=== PATIENT | female | born 1985 | race Hispanic/Latino ===

== ENCOUNTER 2020-10-14 06:50 | Inpatient (IN) | payer OTHER ==
[~2020-10-14] VITALS: Ht 167.6 cm; Wt 106.1 kg
[2020-10-14] VITALS (9 sets, daily range): BP systolic 102–138; BP diastolic 44–87
[2020-10-14] MEDS ORDERED: FAMOTIDINE 20MG VIAL IV ONE (08:00)
[2020-10-14] MEDS ORDERED: SOLU-MEDROL 125MG VIAL IVP ONE (08:00)
[2020-10-14 08:02] LABS: BASOPHILS % (AUTO) 0.3 % (0.0-5.0); EOSINOPHILS % (AUTO) 0.3 % (0.0-8.0); HEMATOCRIT 41.3 % (36-48); LYMPHOCYTES % (AUTO) 7.2 % (21.0-51.0); MEAN CORPUSCULAR HEMOGLOBIN 25.7 pg (27.0-33.0); MEAN CORPUSCULAR HGB CONC 32.2 g/dL (32.0-36.0); MEAN CORPUSCULAR VOLUME 79.9 fL (79-99); MONOCYTES % (AUTO) 2.5 % (3.0-13.0); NEUTROPHILS % (AUTO) 87.2 % (40.0-77.0); PLATELET COUNT (AUTO) 222 K/uL (130-400); RED BLOOD CELL COUNT(AUTO) 5.17 MIL/uL (4.00-5.50); RED CELL DISTRIBUTION WIDTH 15.9 % (11.0-15.5); WHITE BLOOD COUNT (AUTO) 15.5 K/uL (4.8-10.8)
[2020-10-14 08:17] LABS: POTASSIUM 3.1 mmol/L (3.5-5.1)
[2020-10-14 08:22] LABS: ALBUMIN 1.5 g/dL (3.5-5.0); BILIRUBIN,DIRECT 0.2 mg/dL (0.0-0.3); BILIRUBIN,TOTAL 0.4 mg/dL (0.2-1.0); TOTAL PROTEIN, SERUM 7.2 g/dL (6.0-8.3)
[2020-10-14] MEDS: ALBUTEROL INHALER 90MCG/INH IH SCH ×3 (08:26→20:16)
[2020-10-14 08:38] LABS: CRP QUANTITATIVE 225.5 mg/L (0.00-9.0)
[2020-10-14] MEDS ORDERED: LACTATED RINGERS 1000ML 1,000 ML IV ONE (09:00)
[2020-10-14] MEDS ORDERED: CEFTRIAXONE 1G VIAL IVP ONE (09:00)
[2020-10-14 09:07] LABS: ERYTHROCYTE SEDIMENTATION RATE 82 MM/HR (0-20)
[2020-10-14] MEDS ORDERED: ENOXAPARIN SODIUM 80 MG/0.8 ML SQ ONE (09:30)
[2020-10-14] MEDS ORDERED: ACETAMINOPHEN 325 MG TAB ONE (10:06)
[2020-10-14] MEDS ORDERED: DEXAMETHASONE SOD PHOSPHATE 4 MG/ML 1ML VIAL IVP SCH (11:00)
[2020-10-14] MEDS: CEFTRIAXONE 1G VIAL IVP SCH ×2 (11:00→23:53)
[2020-10-14] MEDS ORDERED: GLUCAGON 1MG KIT 1 MG ML IM PRN (11:00)
[2020-10-14] MEDS ORDERED: DEXTROSE 50%-WATER 50 ML DISP.SYRIN IV PRN (11:00)
[2020-10-14] MEDS ORDERED: DiphenhydrAMINE HCL 50 MG/ML VIAL IV PRN (11:00)
[2020-10-14 11:14] LABS: HEMOGLOBIN A1C 5.7 % (4.0-6.0)
[2020-10-14] MEDS: INSULIN HUMULIN R 100 UNIT/ML 3ML SQ SCH ×3 (11:30→21:00)
[2020-10-14] MEDS ORDERED: AZITHROMYCIN 500MG VIAL IVPB SCH (12:30)
[2020-10-14] MEDS ORDERED: 0.9% NACL 250ML IVPB SCH (12:30)
[2020-10-14] MEDS: AZITHROMYCIN 500MG+NS 250ML 250 ML IV SCH (12:50)
[2020-10-14] MEDS ORDERED: PHARMACY COMMUNICATION MISC SCH (15:00)
[2020-10-14] MEDS ORDERED: COMPOUND IV REFRIGERATED 1 EACH IVSOLN MISC PRN (15:30)
[2020-10-14] MEDS ORDERED: REMDESIVIR (EUA) 520 200 MG in 0.9% NACL 250ML 250 ML IV SCH (16:00)
[2020-10-14] MEDS ORDERED: METHYLERGONOVINE MALEATE 0.2 MG/1 ML ML IM ONE (16:03)
[2020-10-14] MEDS: ACETAMINOPHEN 325 MG TAB PO PRN (20:06)
[2020-10-14] MEDS ORDERED: FAMOTIDINE 20MG TAB PO SCH (21:00)
[2020-10-14] MEDS: FAMOTIDINE 20MG TAB PO SCH (21:02)
[2020-10-14] MEDS: DEXAMETHASONE SOD PHOSPHATE 4 MG/ML 1ML VIAL IVP SCH (23:52)
[2020-10-15] VITALS (21 sets, daily range): BP systolic 102–142; BP diastolic 44–85
[2020-10-15] MEDS: ALBUTEROL INHALER 90MCG/INH IH SCH ×4 (02:00→20:28)
[2020-10-15 03:48] LABS: ABG BASE EXCESS 0.3 mmol/L (-2.0-3.0); ABG HCO3 23.3 mmol/L (21.0-28.0); ABG OXYGEN SATURATION 96.3 % (95.0-99.0); ABG PCO2 33 mmHg (32-45)
[2020-10-15 04:22] LABS: RED BLOOD CELL COUNT(AUTO) 4.61 MIL/uL (4.00-5.50); WHITE BLOOD COUNT (AUTO) 11.6 K/uL (4.8-10.8)
[2020-10-15 04:23] LABS: BASOPHILS % (AUTO) 0.3 % (0.0-5.0); HEMATOCRIT 37.3 % (36-48); LYMPHOCYTES % (AUTO) 6.1 % (21.0-51.0); MEAN CORPUSCULAR HGB CONC 32.2 g/dL (32.0-36.0); MEAN CORPUSCULAR VOLUME 80.9 fL (79-99); MONOCYTES % (AUTO) 2.9 % (3.0-13.0); NEUTROPHILS % (AUTO) 88.8 % (40.0-77.0); NUCLEATED RED BLOOD CELLS 0.5 % (0.0-0.19); PLATELET COUNT (AUTO) 186 K/uL (130-400); RED CELL DISTRIBUTION WIDTH 16.1 % (11.0-15.5)
[2020-10-15 05:16] LABS: ALBUMIN 1.3 g/dL (3.5-5.0); BILIRUBIN,TOTAL 0.3 mg/dL (0.2-1.0); CREATININE 0.7 mg/dL (0.5-1.5); POTASSIUM 3.7 mmol/L (3.5-5.1); TOTAL PROTEIN, SERUM 5.4 g/dL (6.0-8.3)
[2020-10-15] MEDS: ACETAMINOPHEN 325 MG TAB PO PRN (05:33)
[2020-10-15 05:34] LABS: CRP QUANTITATIVE 204.7 mg/L (0.00-9.0)
[2020-10-15] MEDS: POTASSIUM CHLORIDE 10% ELIXIR 20 MEQ/15 ML UDCUP PO PRN (05:37)
[2020-10-15] MEDS: REMDESIVIR LABS MISC SCH (06:00)
[2020-10-15] MEDS: PHARMACY COMMUNICATION MISC SCH ×5 (07:00→23:00)
[2020-10-15] MEDS: INSULIN HUMULIN R 100 UNIT/ML 3ML SQ SCH ×4 (07:30→20:32)
[2020-10-15] MEDS: FAMOTIDINE 20MG TAB PO SCH ×2 (09:00→20:29)
[2020-10-15] MEDS: ENOXAPARIN SODIUM 40 MG/0.4 ML SYRINGE SQ SCH (09:00)
[2020-10-15] MEDS: AZITHROMYCIN 500MG+NS 250ML 250 ML IV SCH (12:43)
[2020-10-15] MEDS: CEFTRIAXONE 1G VIAL IVP SCH ×2 (12:43→23:00)
[2020-10-15] MEDS: DEXAMETHASONE SOD PHOSPHATE 4 MG/ML 1ML VIAL IVP SCH ×2 (12:43→23:00)
[2020-10-15] MEDS: REMDESIVIR (EUA) 520 100 MG in 0.9% NACL 250ML 250 ML IV SCH (16:30)
[2020-10-15 18:18] LABS: APPEARANCE,URINE Clear (CLEAR); BILIRUBIN,URINE Negative (NEGATIVE); COLOR,URINE Dark Yellow (YELLOW); GLUCOSE, URINE (UA) Negative (NEGATIVE); KETONES,URINE 40 mg/dL (NEGATIVE); LEUKOCYTE ESTERASE ,URINE Negative (NEGATIVE); NITRATE,URINE Negative (NEGATIVE); OCCULT BLOOD,URINE Negative (NEGATIVE); PH,URINE 6.5 (5.0-8.0); PROTEIN,URINE POS 1+ mg/dL (NEGATIVE)
[2020-10-15] MEDS: BARICITINIB (EUA) 2 MG TABLET PO SCH (18:27)
[2020-10-15] MEDS: BUSPIRONE HCL 5 MG TABLET PO SCH (18:27)
[2020-10-15 18:30] LABS: BACTERIA,URINE Few /HPF (None Seen); RBC,URINE 0-1 /HPF (0-1); WBC,URINE 0-1 /HPF (0-1); YEAST,URINE BUDDING Rare /HPF (None Seen)
[2020-10-15 18:31] LABS: MUCUS,URINE Rare LPF (None Seen); SQUAMOUS EPITHELIAL CELL,UR Few /HPF (0-2)
[2020-10-16] VITALS (20 sets, daily range): BP systolic 97–134; BP diastolic 44–96
[2020-10-16] MEDS: BUSPIRONE HCL 5 MG TABLET PO SCH ×3 (02:26→16:50)
[2020-10-16] MEDS: ALBUTEROL INHALER 90MCG/INH IH SCH ×4 (02:26→20:00)
[2020-10-16] MEDS: PHARMACY COMMUNICATION MISC SCH ×6 (03:00→23:00)
[2020-10-16 04:37] LABS: BASOPHILS % (AUTO) 0.1 % (0.0-5.0); HEMATOCRIT 33.1 % (36-48); LYMPHOCYTES % (AUTO) 7.9 % (21.0-51.0); MEAN CORPUSCULAR HEMOGLOBIN 25.7 pg (27.0-33.0); MEAN CORPUSCULAR HGB CONC 31.7 g/dL (32.0-36.0); MEAN CORPUSCULAR VOLUME 80.9 fL (79-99); MONOCYTES % (AUTO) 3.1 % (3.0-13.0); NEUTROPHILS % (AUTO) 87.4 % (40.0-77.0); NUCLEATED RED BLOOD CELLS 0.2 % (0.0-0.19); PLATELET COUNT (AUTO) 191 K/uL (130-400); RED BLOOD CELL COUNT(AUTO) 4.09 MIL/uL (4.00-5.50); RED CELL DISTRIBUTION WIDTH 16.1 % (11.0-15.5); WHITE BLOOD COUNT (AUTO) 9.2 K/uL (4.8-10.8)
[2020-10-16 04:52] LABS: ALBUMIN 1.3 g/dL (3.5-5.0); BILIRUBIN,TOTAL 0.2 mg/dL (0.2-1.0); CREATININE 0.6 mg/dL (0.5-1.5); CRP QUANTITATIVE 45.5 mg/L (0.00-9.0); POTASSIUM 3.5 mmol/L (3.5-5.1); TOTAL PROTEIN, SERUM 5.7 g/dL (6.0-8.3)
[2020-10-16] MEDS: REMDESIVIR LABS MISC SCH (05:10)
[2020-10-16] MEDS: INSULIN HUMULIN R 100 UNIT/ML 3ML SQ SCH ×4 (05:11→19:49)
[2020-10-16] MEDS: KCL 20 MEQ ERTAB PO PRN ×2 (05:57→12:41)
[2020-10-16] MEDS: FAMOTIDINE 20MG TAB PO SCH ×2 (08:53→21:03)
[2020-10-16] MEDS: ENOXAPARIN SODIUM 40 MG/0.4 ML SYRINGE SQ SCH (08:54)
[2020-10-16] MEDS: BARICITINIB (EUA) 2 MG TABLET PO SCH (09:16)
[2020-10-16] MEDS: DEXAMETHASONE SOD PHOSPHATE 4 MG/ML 1ML VIAL IVP SCH ×3 (10:49→23:43)
[2020-10-16] MEDS: CEFTRIAXONE 1G VIAL IVP SCH ×2 (10:55→23:43)
[2020-10-16] MEDS: AZITHROMYCIN 500MG+NS 250ML 250 ML IV SCH (12:41)
[2020-10-16] MEDS ORDERED: GUAIFENESIN-DM 200/20 MG 10 ML PO PRN (13:00)
[2020-10-16] MEDS: REMDESIVIR (EUA) 520 100 MG in 0.9% NACL 250ML 250 ML IV SCH (16:11)
[2020-10-17] VITALS (22 sets, daily range): BP systolic 99–154; BP diastolic 51–98
[2020-10-17] MEDS: ALBUTEROL INHALER 90MCG/INH IH SCH ×4 (02:00→20:00)
[2020-10-17] MEDS: BUSPIRONE HCL 5 MG TABLET PO SCH ×3 (02:07→19:01)
[2020-10-17] MEDS: PHARMACY COMMUNICATION MISC SCH ×6 (03:00→23:00)
[2020-10-17 04:03] LABS: ALBUMIN 1.4 g/dL (3.5-5.0); BILIRUBIN,TOTAL 0.3 mg/dL (0.2-1.0); CREATININE 0.6 mg/dL (0.5-1.5); CRP QUANTITATIVE 32.6 mg/L (0.00-9.0); POTASSIUM 3.5 mmol/L (3.5-5.1); TOTAL PROTEIN, SERUM 5.6 g/dL (6.0-8.3)
[2020-10-17 04:40] LABS: BASOPHILS % (AUTO) 0.1 % (0.0-5.0); HEMATOCRIT 34.5 % (36-48); LYMPHOCYTES % (AUTO) 3.8 % (21.0-51.0); MEAN CORPUSCULAR HEMOGLOBIN 25.7 pg (27.0-33.0); MEAN CORPUSCULAR HGB CONC 31.3 g/dL (32.0-36.0); MEAN CORPUSCULAR VOLUME 82.1 fL (79-99); MONOCYTES % (AUTO) 2.9 % (3.0-13.0); NEUTROPHILS % (AUTO) 92.3 % (40.0-77.0); PLATELET COUNT (AUTO) 178 K/uL (130-400); RED CELL DISTRIBUTION WIDTH 16.1 % (11.0-15.5); WHITE BLOOD COUNT (AUTO) 10.4 K/uL (4.8-10.8)
[2020-10-17] MEDS: INSULIN HUMULIN R 100 UNIT/ML 3ML SQ SCH ×4 (05:44→20:12)
[2020-10-17] MEDS: REMDESIVIR LABS MISC SCH (06:00)
[2020-10-17 10:20] LABS: BASOPHILS % (AUTO) 0.1 % (0.0-5.0); LYMPHOCYTES % (AUTO) 5.1 % (21.0-51.0); MEAN CORPUSCULAR HEMOGLOBIN 26.4 pg (27.0-33.0); MEAN CORPUSCULAR HGB CONC 31.6 g/dL (32.0-36.0); MEAN CORPUSCULAR VOLUME 83.8 fL (79-99); MONOCYTES % (AUTO) 2.4 % (3.0-13.0); NEUTROPHILS % (AUTO) 91.2 % (40.0-77.0); PLATELET COUNT (AUTO) 171 K/uL (130-400); RED BLOOD CELL COUNT(AUTO) 3.82 MIL/uL (4.00-5.50); RED CELL DISTRIBUTION WIDTH 15.9 % (11.0-15.5); WHITE BLOOD COUNT (AUTO) 10.9 K/uL (4.8-10.8)
[2020-10-17] MEDS ORDERED: 0.9% NACL 250ML 250 ML ONE (10:54)
[2020-10-17] MEDS: BARICITINIB (EUA) 2 MG TABLET PO SCH (10:59)
[2020-10-17] MEDS: DEXAMETHASONE SOD PHOSPHATE 4 MG/ML 1ML VIAL IVP SCH (10:59)
[2020-10-17] MEDS: FAMOTIDINE 20MG TAB PO SCH ×2 (10:59→20:17)
[2020-10-17] MEDS: ENOXAPARIN SODIUM 40 MG/0.4 ML SYRINGE SQ SCH (11:00)
[2020-10-17] MEDS: AZITHROMYCIN 500MG+NS 250ML 250 ML IV SCH (11:00)
[2020-10-17] MEDS: CEFTRIAXONE 1G VIAL IVP SCH (11:00)
[2020-10-17] MEDS: POTASSIUM CHLORIDE 10% ELIXIR 20 MEQ/15 ML UDCUP PO PRN ×2 (11:02→16:24)
[2020-10-17] MEDS ORDERED: NACL NASAL SPRAY 120 SPRAY/BOTTLE NS PRN (13:30)
[2020-10-17] MEDS ORDERED: DEXMEDETOMIDINE 400MCG/NS100ML IV SCH (14:00)
[2020-10-17] MEDS ORDERED: FUROSEMIDE 20MG VIAL IV ONE (14:30)
[2020-10-17 15:53] LABS: INR 0.94 (0.85-1.15); PROTHROMBIN TIME 10.3 SEC (9.6-11.6)
[2020-10-17] MEDS ORDERED: FUROSEMIDE 20MG VIAL ONE (16:17)
[2020-10-17] MEDS: REMDESIVIR (EUA) 520 100 MG in 0.9% NACL 250ML 250 ML IV SCH (16:24)
[2020-10-18] VITALS (20 sets, daily range): BP systolic 31–145; BP diastolic 21–94
[2020-10-18] MEDS: BUSPIRONE HCL 5 MG TABLET PO SCH ×2 (00:38→09:30)
[2020-10-18] MEDS: DEXAMETHASONE SOD PHOSPHATE 4 MG/ML 1ML VIAL IVP SCH ×2 (00:38→14:00)
[2020-10-18] MEDS: CEFTRIAXONE 1G VIAL IVP SCH ×2 (00:38→11:00)
[2020-10-18] MEDS: ALBUTEROL INHALER 90MCG/INH IH SCH ×3 (02:00→14:00)
[2020-10-18] MEDS: PHARMACY COMMUNICATION MISC SCH ×4 (03:00→14:19)
[2020-10-18 04:06] LABS: BASOPHILS % (AUTO) 0.1 % (0.0-5.0); EOSINOPHILS % (AUTO) 0.1 % (0.0-8.0); HEMATOCRIT 34.1 % (36-48); LYMPHOCYTES % (AUTO) 2.2 % (21.0-51.0); MEAN CORPUSCULAR HEMOGLOBIN 25.9 pg (27.0-33.0); MEAN CORPUSCULAR HGB CONC 31.7 g/dL (32.0-36.0); MEAN CORPUSCULAR VOLUME 81.8 fL (79-99); MONOCYTES % (AUTO) 2.1 % (3.0-13.0); NEUTROPHILS % (AUTO) 94.4 % (40.0-77.0); PLATELET COUNT (AUTO) 162 K/uL (130-400); RED BLOOD CELL COUNT(AUTO) 4.17 MIL/uL (4.00-5.50); RED CELL DISTRIBUTION WIDTH 15.9 % (11.0-15.5); WHITE BLOOD COUNT (AUTO) 14.3 K/uL (4.8-10.8)
[2020-10-18 04:23] LABS: ALBUMIN 1.5 g/dL (3.5-5.0); BILIRUBIN,TOTAL 0.4 mg/dL (0.2-1.0); CREATININE 0.5 mg/dL (0.5-1.5); POTASSIUM 3.4 mmol/L (3.5-5.1); TOTAL PROTEIN, SERUM 6.6 g/dL (6.0-8.3)
[2020-10-18] MEDS: INSULIN HUMULIN R 100 UNIT/ML 3ML SQ SCH ×2 (05:41→11:30)
[2020-10-18] MEDS: REMDESIVIR LABS MISC SCH (06:00)
[2020-10-18] MEDS ORDERED: FENTANYL CITRATE PF 50 MCG/1 ML 2ML VIAL ONE (07:36)
[2020-10-18] MEDS ORDERED: 0.9%NACL 1000ML 1,000 ML IV ONE (07:39)
[2020-10-18] MEDS ORDERED: PROPOFOL 1000 MG/100 ML 100 ML IV ONE (07:43)
[2020-10-18] MEDS ORDERED: FENTANYL 2500MCG+NS 250ML 250 ML IV ONE (07:44)
[2020-10-18] MEDS ORDERED: NOREPINEPHRINE 4MG/NS 250ML 250 ML IV ONE ×3 (07:50→15:41)
[2020-10-18 08:36] LABS: ABG BASE EXCESS -10.6 mmol/L (-2.0-3.0); ABG HCO3 21.3 mmol/L (21.0-28.0); ABG OXYGEN SATURATION 54.9 % (95.0-99.0); ABG PCO2 82 mmHg (32-45)
[2020-10-18] MEDS ORDERED: PORACTANT ALFA 240 MG/3 ML VIAL IH ONE (08:59)
[2020-10-18] MEDS ORDERED: KETAMINE 50MG/ML SYRINGE 50 MG/ML DISP.SYRIN IV ONE (09:00)
[2020-10-18] MEDS: BARICITINIB (EUA) 2 MG TABLET PO SCH (09:00)
[2020-10-18] MEDS: ENOXAPARIN SODIUM 40 MG/0.4 ML SYRINGE SQ SCH (09:00)
[2020-10-18] MEDS ORDERED: PORACTANT ALFA 120 MG/1.5 ML VIAL IH ONE (09:01)
[2020-10-18] MEDS ORDERED: ROCURONIUM 10MG/1ML SYR 10 MG/ML ML ONE (09:01)
[2020-10-18] MEDS ORDERED: OXYTOCIN-LR 20 UNITS/1000 ML 1,000 ML IV ONE (09:02)
[2020-10-18] MEDS ORDERED: OXYTOCIN 10 USP UNITS/ML ONE (09:02)
[2020-10-18] MEDS ORDERED: NALOXONE HCL 0.4 MG/1 ML ML ONE (09:11)
[2020-10-18] MEDS ORDERED: TRANEXAMIC ACID 1000MG/10ML ONE (09:17)
[2020-10-18 09:19] LABS: ABG BASE EXCESS -10.1 mmol/L (-2.0-3.0); ABG HCO3 19.2 mmol/L (21.0-28.0); ABG OXYGEN SATURATION 70.1 % (95.0-99.0); ABG PCO2 58 mmHg (32-45)
[2020-10-18] MEDS ORDERED: SODIUM BICARB 50MEQ 50ML VIAL 150 ML ONE (09:21)
[2020-10-18] MEDS ORDERED: SODIUM BICARB 50MEQ 50ML VIAL 100 ML ONE (09:24)
[2020-10-18 09:45] LABS: ABG BASE EXCESS -4.5 mmol/L (-2.0-3.0); ABG HCO3 25.1 mmol/L (21.0-28.0); ABG OXYGEN SATURATION 59.4 % (95.0-99.0); ABG PCO2 70 mmHg (32-45)
[2020-10-18 10:00] LABS: ABG BASE EXCESS 0.1 mmol/L (-2.0-3.0); ABG HCO3 28.5 mmol/L (21.0-28.0); ABG OXYGEN SATURATION 62.7 % (95.0-99.0); ABG PCO2 66 mmHg (32-45)
[2020-10-18] MEDS ORDERED: PHARMACY COMMUNICATION MISC SCH ×4 (10:00→10:30)
[2020-10-18] MEDS ORDERED: SODIUM BICARB 50MEQ 50ML VIAL 150 MEQ in DEXTROSE 5%-WATER 1,000 ML IV SCH (10:00)
[2020-10-18] MEDS ORDERED: VASOPRESSIN 20 UNITS/ML 1ML VIAL IVP SCH ×2 (10:00→10:30)
[2020-10-18 10:07] LABS: RAPID PLASMA REAGIN NONREACTIVE (NONREACTIVE)
[2020-10-18] MEDS ORDERED: METHYLERGONOVINE MALEATE 0.2 MG/1 ML ML IM ONE (10:07)
[2020-10-18 10:16] LABS: ABG BASE EXCESS -2.4 mmol/L (-2.0-3.0); ABG HCO3 26.1 mmol/L (21.0-28.0); ABG OXYGEN SATURATION 60.3 % (95.0-99.0); ABG PCO2 64 mmHg (32-45)
[2020-10-18] MEDS ORDERED: CISATRACURIUM BESYLATE 100 MG in 0.9%NACL 100ML 100 ML IV SCH (10:30)
[2020-10-18] MEDS ORDERED: ALBUMIN (HUMAN) 5% 250 ML IV SCH ×2 (11:00)
[2020-10-18] MEDS ORDERED: VASOPRESSIN 20 UNITS in 0.9%NACL 100ML 100 ML IV SCH (11:00)
[2020-10-18] MEDS ORDERED: LACTATED RINGERS 1000ML 1,000 ML IV SCH (11:00)
[2020-10-18] MEDS: FAMOTIDINE 20MG TAB PO SCH (12:06)
[2020-10-18] MEDS: AZITHROMYCIN 500MG+NS 250ML 250 ML IV SCH (12:30)
[2020-10-18 13:14] LABS: ABG BASE EXCESS -12.5 mmol/L (-2.0-3.0); ABG OXYGEN SATURATION 78.8 % (95.0-99.0); ABG PCO2 64 mmHg (32-45)
[2020-10-18] MEDS ORDERED: PHENYLEPHRINE HCL 10 MG in 0.9% NACL 250ML 250 ML IV PRN (13:30)
[2020-10-18 13:55] LABS: HEMATOCRIT 34.6 % (36-48)
[2020-10-18] MEDS ORDERED: PANTOPRAZOLE 40 MG/VIAL ONE (13:56)
[2020-10-18] MEDS ORDERED: PHENYLEPHRINE HCL 50 MG in 0.9% NACL 250ML 250 ML IV PRN (15:30)
[2020-10-18] MEDS ORDERED: NOREPINEPHRINE 4MG/NS 250ML 250 ML IV SCH (16:00)
[2020-10-18] MEDS: REMDESIVIR (EUA) 520 100 MG in 0.9% NACL 250ML 250 ML IV SCH (16:00)
[2020-10-19 13:11] LABS: HEPATITIS Bs ANTIGEN SCREEN P Negative (Negative)
== END 2020-10-18 16:04 | DRG 786 ==
LOC: EDH 06:50 → EDHIP 06:51 → 2AH 22:18
PROVIDERS: ADMIT Hospitalist; ATTEND Hospitalist
PROC: XW033E5 Introduction of Remdesivir Anti-infective into Peripheral Vein, Percutaneous Approach, New Technology Group 5 (ICD-10-PCS; 2020-10-14)
PROC: 5A0935A Assistance with Respiratory Ventilation, Less than 24 Consecutive Hours, High Flow/Velocity Cannula (ICD-10-PCS; 2020-10-14)
PROC: XW0DXM6 Introduction of Baricitinib into Mouth and Pharynx, External Approach, New Technology Group 6 (ICD-10-PCS; 2020-10-15)
PROC: 5A0935A Assistance with Respiratory Ventilation, Less than 24 Consecutive Hours, High Flow/Velocity Cannula (ICD-10-PCS; 2020-10-15)
PROC: 5A0935A Assistance with Respiratory Ventilation, Less than 24 Consecutive Hours, High Flow/Velocity Cannula (ICD-10-PCS; 2020-10-16)
PROC: 5A0935A Assistance with Respiratory Ventilation, Less than 24 Consecutive Hours, High Flow/Velocity Cannula (ICD-10-PCS; 2020-10-17)
PROC: 5A09357 Assistance with Respiratory Ventilation, Less than 24 Consecutive Hours, Continuous Positive Airway Pressure (ICD-10-PCS; 2020-10-17)
PROC: 05HM33Z Insertion of Infusion Device into Right Internal Jugular Vein, Percutaneous Approach (ICD-10-PCS; 2020-10-18)
PROC: 5A1935Z Respiratory Ventilation, Less than 24 Consecutive Hours (ICD-10-PCS; 2020-10-18)
PROC: 0BH17EZ Insertion of Endotracheal Airway into Trachea, Via Natural or Artificial Opening (ICD-10-PCS; 2020-10-18)
PROC: 10D00Z1 Extraction of Products of Conception, Low, Open Approach (ICD-10-PCS; principal; 2020-10-18 09:45)
DX: O60.13X0 Preterm labor second trimester with preterm delivery third trimester, not applicable or unspecified (principal); U07.1 COVID-19; J12.82 Pneumonia due to coronavirus disease 2019; J80 Acute respiratory distress syndrome; I21.4 Non-ST elevation (NSTEMI) myocardial infarction; A41.9 Sepsis, unspecified organism; O98.513 Other viral diseases complicating pregnancy, third trimester; O98.813 Other maternal infectious and parasitic diseases complicating pregnancy, third trimester; O99.113 Other diseases of the blood and blood-forming organs and certain disorders involving the immune mechanism complicating pregnancy, third trimester; D68.69 Other thrombophilia; O99.413 Diseases of the circulatory system complicating pregnancy, third trimester; E87.6 Hypokalemia; Z3A.28 28 weeks gestation of pregnancy; O99.283 Endocrine, nutritional and metabolic diseases complicating pregnancy, third trimester; O99.513 Diseases of the respiratory system complicating pregnancy, third trimester; O99.213 Obesity complicating pregnancy, third trimester; E66.9 Obesity, unspecified; B97.89 Other viral agents as the cause of diseases classified elsewhere; Z37.0 Single live birth
CPT/HCPCS: 31500; 36415; 36600; 59510; 71045; 76805; 80053; 80076; 81001; 82435; 82550; 82728; 82803; 82947; 82948; 83036; 83605; 83615; 83735; 84132; 84145; 84295; 84484; 85014; 85018; 85025; 85378; 85610; 85651; 86140; 86592; 86701; 86850; 86900; 86901; 87040; 87088; 87340; 87390; 87635; 87804; 93005; 93970; 94002; 94660; 99291; A4344; C9113; C9803; J0456; J0696; J1100; J1650; J1940; J2210; J2310; J2370; J2590; J2704; J2930; J3010; J3490; J7030; J7050; J7070; J7120